=== PATIENT | male | born 1965 | race Caucasian/White ===

== ENCOUNTER 2022-01-17 14:35 | Outpatient (CLI) | payer BC | END 2022-01-17 14:36 | disposition home or self-care (01) | LOC: CSHMRI 14:35 | PROVIDERS: ATTEND Family Medicine | DX: M54.12 Radiculopathy, cervical region (principal); M54.16 Radiculopathy, lumbar region; M48.02 Spinal stenosis, cervical region; M47.812 Spondylosis without myelopathy or radiculopathy, cervical region; M50.30 Other cervical disc degeneration, unspecified cervical region; N28.9 Disorder of kidney and ureter, unspecified; M47.816 Spondylosis without myelopathy or radiculopathy, lumbar region; M48.07 Spinal stenosis, lumbosacral region | CPT/HCPCS: 72141; 72148 ==

== ENCOUNTER 2022-03-11 08:13 | Outpatient (CLI) | payer BC | END 2022-03-11 08:14 | disposition home or self-care (01) | LOC: CSHCT 08:13 | PROVIDERS: ATTEND Neurological Surgery | DX: M43.16 Spondylolisthesis, lumbar region (principal); M51.36 Other intervertebral disc degeneration, lumbar region; M48.061 Spinal stenosis, lumbar region without neurogenic claudication | CPT/HCPCS: 72131 ==